=== PATIENT | male | born 1960 | race Caucasian/White ===

== ENCOUNTER 2022-12-18 10:17 | Inpatient (IN) | payer OTHER ==
[~2022-12-18] VITALS: Ht 185.4 cm; Wt 197.9 kg
[2022-12-18] MEDS ORDERED: cefTRIAXone 1GM/50ML D5W 50 ML IV ONE (11:15)
[2022-12-18] MEDS ORDERED: AZITHROMYCIN 500MG/ 250ML 250 ML IV ONE (11:15)
[2022-12-18] MEDS ORDERED: FUROSEMIDE 40 MG/4 ML VIAL IV ONE (11:15)
[2022-12-18 11:29] LABS: Basophils # (auto) 0.1 10 ^3/uL (0-0.2); Eosinophils # (auto) 0.1 10 ^3/uL (0-0.8)
[2022-12-18 11:32] LABS: Basophils % (auto) 0.8 % (0.0-2.0); Eosinophils % (auto) 1.7 % (0.0-7.0); Hematocrit 38.9 % (41.0-53.0); Hemoglobin 12.6 g/dL (13.5-17.5); Lymphocytes # (auto) 0.8 10 ^3/uL (0.4-5.4); Lymphocytes % (auto) 12.8 % (10.0-50.0); Mean Corpuscular Hgb Conc. 32.4 g/dL (32.0-36.0); Mean Corpuscular Volume 83.5 fL (80.0-100.0); Monocytes # (auto) 0.5 10 ^3/uL (0-1.3); Monocytes % (auto) 7.2 % (0.0-12.0); Neutrophils # (auto) 5.1 10 ^3/uL (1.6-8.6); Neutrophils % (auto) 77.5 % (37.0-80.0); Red Blood Cells 4.66 10^6/uL (4.5-5.90); Red Cell Distribution Width 16.5 % (11.8-14.3); White Blood Cell 6.6 10^3/uL (4.4-10.8)
[2022-12-18 11:40] LABS: Albumin 3.9 g/dL (3.4-5.0); Calcium 8.5 mg/dL (8.5-10.1); Potassium 3.9 mmol/L (3.5-5.1)
[2022-12-18 11:42] LABS: Bilirubin, Total 1.1 mg/dL (0.2-1.0); Total Protein 7.1 g/dL (6.4-8.2)
[2022-12-18] MEDS ORDERED: HEPARIN SODIUM (PORCINE) 5000 UNITS/ML 1ML VIAL IV ONE (14:30)
[2022-12-18 14:54] LABS: INR 1.14 (0.9-1.15); Partial Thromboplastin Time 30.6 sec (24.6-33.4)
[2022-12-18 15:14] LABS: Urine Bacteria NONE SEEN /hpf (None Seen); Urine Blood Negative /uL (Negative); Urine Specific Gravity 1.006 (1.001-1.035); Urine WBC <1 /hpf (0 - 3)
[2022-12-18] MEDS ORDERED: ACETAMINOPHEN 325 MG TAB PO PRN (16:45)
[2022-12-18] MEDS ORDERED: HYDROcodone-ACET 5/325MG TAB PO PRN (16:45)
[2022-12-18] MEDS ORDERED: DOCUSATE SOD 100 MG CAP PO PRN (16:45)
[2022-12-18] MEDS ORDERED: ONDANSETRON HCL 4 MG/2 ML VIAL IV PRN (16:45)
[2022-12-18] MEDS: HEPARIN DRIP/D5W 100UNITS/ML 250 ML IV SCH (19:58)
[2022-12-18] MEDS: IOHEXOL 350 MG/ML 100ML IJ ONE ×2 (20:06→22:43)
[2022-12-18] MEDS: FAMOTIDINE 20 MG TAB PO SCH (20:09)
[2022-12-18] MEDS: ceFAZolin 1GM/50ML 50 ML IV SCH (22:33)
[2022-12-19 03:09] LABS: INR 1.25 (0.9-1.15)
[2022-12-19 03:20] LABS: Partial Thromboplastin Time 72.9 sec (24.6-33.4)
[2022-12-19] MEDS: HEPARIN DRIP/D5W 100UNITS/ML 250 ML IV SCH ×3 (06:55→21:05)
[2022-12-19 09:22] LABS: INR 1.24 (0.9-1.15); Partial Thromboplastin Time 63.4 sec (24.6-33.4)
[2022-12-19] MEDS: ceFAZolin 1GM/50ML 50 ML IV SCH ×2 (09:51→22:08)
[2022-12-19] MEDS: FAMOTIDINE 20 MG TAB PO SCH (09:51)
[2022-12-19] MEDS ORDERED: FUROSEMIDE 40 MG/4 ML VIAL IV ONE ×2 (13:15→13:30)
[2022-12-19] MEDS ORDERED: DIGOXIN (250MCG/ML) 2 ML AMPULE IV ONE (13:30)
[2022-12-19] MEDS: AMIODARONE HCL 200 MG TAB PO SCH ×2 (14:29→22:08)
[2022-12-19] MEDS: METOPROLOL TARTRATE 25 MG TAB PO SCH ×2 (14:30→22:08)
[2022-12-19 15:35] LABS: Basophils # (auto) 0 10 ^3/uL (0-0.2); Basophils % (auto) 0.9 % (0.0-2.0); Eosinophils # (auto) 0.1 10 ^3/uL (0-0.8); Eosinophils % (auto) 1.4 % (0.0-7.0); Hematocrit 36.5 % (41.0-53.0); Lymphocytes % (auto) 17.6 % (10.0-50.0); Mean Corpuscular Hemoglobin 27.2 pg (28.0-32.0); Mean Corpuscular Hgb Conc. 32.8 g/dL (32.0-36.0); Mean Corpuscular Volume 82.9 fL (80.0-100.0); Monocytes # (auto) 0.4 10 ^3/uL (0-1.3); Monocytes % (auto) 8.2 % (0.0-12.0); Neutrophils # (auto) 3.9 10 ^3/uL (1.6-8.6); Neutrophils % (auto) 71.9 % (37.0-80.0); Nucleated Red Blood Cells % 0.1 %; Red Cell Distribution Width 16.6 % (11.8-14.3); White Blood Cell 5.4 10^3/uL (4.4-10.8)
[2022-12-19 15:52] LABS: INR 1.22 (0.9-1.15); Partial Thromboplastin Time 56.4 sec (24.6-33.4)
[2022-12-19 15:54] LABS: BUN/Creatinine Ratio 15.1; Magnesium 1.9 mg/dL (1.6-2.6); Phosphorus 3.2 mg/dL (2.5-4.90); Potassium 3.7 mmol/L (3.5-5.1)
[2022-12-19 22:00] VITALS: BP 129/80
[2022-12-20 00:09] VITALS: BP 129/80
[2022-12-20 00:26] LABS: INR 1.16 (0.9-1.15); Partial Thromboplastin Time 42.1 sec (24.6-33.4)
[2022-12-20] MEDS ORDERED: METF-370 PO (01:20)
[2022-12-20] MEDS ORDERED: POTA10TA51 PO (01:23)
[2022-12-20] MEDS ORDERED: APIX5TAB PO (01:23)
[2022-12-20] MEDS ORDERED: METO25TA5 PO (01:23)
[2022-12-20] MEDS ORDERED: LISI40TA11 PO (01:23)
[2022-12-20] MEDS ORDERED: ATOR40TA52 PO (01:24)
[2022-12-20] MEDS ORDERED: FURO20TA3 PO (01:24)
[2022-12-20] MEDS ORDERED: INSU1INJ19 SC (01:24)
[2022-12-20 05:00] VITALS: BP 124/64
[2022-12-20 07:09] LABS: INR 1.17 (0.9-1.15); Partial Thromboplastin Time 64.6 sec (24.6-33.4)
[2022-12-20 08:30] VITALS: BP 128/68
[2022-12-20 09:00] VITALS: BP 128/68
[2022-12-20] MEDS: FUROSEMIDE 20 MG/2 ML VIAL IV SCH ×2 (10:11→17:30)
[2022-12-20] MEDS: FAMOTIDINE 20 MG TAB PO SCH (10:11)
[2022-12-20] MEDS: METOPROLOL TARTRATE 25 MG TAB PO SCH ×2 (10:11→22:50)
[2022-12-20] MEDS: AMIODARONE HCL 200 MG TAB PO SCH ×2 (10:11→22:49)
[2022-12-20] MEDS: ceFAZolin 1GM/50ML 50 ML IV SCH ×2 (10:11→22:48)
[2022-12-20 13:00] VITALS: BP 107/56
[2022-12-20] MEDS: HEPARIN DRIP/D5W 100UNITS/ML 250 ML IV SCH ×2 (13:27→14:55)
[2022-12-20 13:31] LABS: INR 1.14 (0.9-1.15); Partial Thromboplastin Time 33.1 sec (24.6-33.4)
[2022-12-20] MEDS ORDERED: HEPARIN SODIUM (PORCINE) 5000 UNITS/ML 1ML VIAL SC ONE (14:35)
[2022-12-20] MEDS ORDERED: HEPARIN SODIUM (PORCINE) 5000 UNITS/ML 1ML VIAL IV ONE (14:48)
[2022-12-20 21:50] LABS: INR 1.15 (0.9-1.15)
[2022-12-20 21:59] LABS: Partial Thromboplastin Time 90.1 sec (24.6-33.4)
[2022-12-20 22:30] VITALS: BP 138/78
[2022-12-21] MEDS: HEPARIN DRIP/D5W 100UNITS/ML 250 ML IV SCH ×2 (01:46→12:55)
[2022-12-21 05:13] VITALS: BP 154/75
[2022-12-21] MEDS: FUROSEMIDE 20 MG/2 ML VIAL IV SCH ×2 (05:55→18:57)
[2022-12-21 07:08] LABS: Basophils # (auto) 0.1 10 ^3/uL (0-0.2); Basophils % (auto) 0.8 % (0.0-2.0); Eosinophils # (auto) 0.2 10 ^3/uL (0-0.8); Eosinophils % (auto) 3.2 % (0.0-7.0); Hemoglobin 11.3 g/dL (13.5-17.5); Lymphocytes # (auto) 1.1 10 ^3/uL (0.4-5.4); Lymphocytes % (auto) 18.2 % (10.0-50.0); Mean Corpuscular Hemoglobin 26.7 pg (28.0-32.0); Mean Corpuscular Hgb Conc. 32.4 g/dL (32.0-36.0); Mean Corpuscular Volume 82.5 fL (80.0-100.0); Monocytes # (auto) 0.6 10 ^3/uL (0-1.3); Monocytes % (auto) 10.6 % (0.0-12.0); Neutrophils # (auto) 4.1 10 ^3/uL (1.6-8.6); Neutrophils % (auto) 67.2 % (37.0-80.0); Red Blood Cells 4.24 10^6/uL (4.5-5.90); Red Cell Distribution Width 16.9 % (11.8-14.3); White Blood Cell 6.1 10^3/uL (4.4-10.8)
[2022-12-21 07:31] LABS: Potassium 3.6 mmol/L (3.5-5.1)
[2022-12-21 07:33] LABS: INR 1.13 (0.9-1.15); Partial Thromboplastin Time 57.5 sec (24.6-33.4)
[2022-12-21 07:38] LABS: BUN/Creatinine Ratio 11.5; Calcium 8.7 mg/dL (8.5-10.1)
[2022-12-21 08:00] VITALS: BP 127/59
[2022-12-21 09:00] VITALS: BP 127/59
[2022-12-21] MEDS: FAMOTIDINE 20 MG TAB PO SCH (10:42)
[2022-12-21] MEDS: AMIODARONE HCL 200 MG TAB PO SCH ×2 (10:42→22:45)
[2022-12-21] MEDS: ceFAZolin 1GM/50ML 50 ML IV SCH ×2 (10:43→22:44)
[2022-12-21] MEDS: METOPROLOL TARTRATE 25 MG TAB PO SCH ×2 (10:43→22:45)
[2022-12-21 12:30] VITALS: BP 133/86
[2022-12-21 12:52] LABS: INR 1.1 (0.9-1.15); Partial Thromboplastin Time 61.9 sec (24.6-33.4)
[2022-12-21 17:00] VITALS: BP 126/75
[2022-12-21] MEDS ORDERED: WARFARIN SODIUM 10 MG TAB PO ONE (17:30)
[2022-12-21 22:00] VITALS: BP 139/91
[2022-12-21] MEDS: ENOXAPARIN SOD 150 MG/1 ML SYRINGE SC SCH (22:44)
[2022-12-22 05:00] VITALS: BP 130/78
[2022-12-22] MEDS: FUROSEMIDE 20 MG/2 ML VIAL IV SCH ×2 (06:13→16:54)
[2022-12-22 07:20] LABS: INR 1.09 (0.9-1.15); Partial Thromboplastin Time 29.6 sec (24.6-33.4)
[2022-12-22 07:27] LABS: Calcium 8.8 mg/dL (8.5-10.1); Potassium 3.7 mmol/L (3.5-5.1)
[2022-12-22 07:29] LABS: BUN/Creatinine Ratio 12.2
[2022-12-22] MEDS: AMIODARONE HCL 200 MG TAB PO SCH ×2 (08:36→22:22)
[2022-12-22] MEDS: FAMOTIDINE 20 MG TAB PO SCH (08:36)
[2022-12-22] MEDS: ENOXAPARIN SOD 150 MG/1 ML SYRINGE SC SCH ×2 (08:36→22:23)
[2022-12-22] MEDS: ceFAZolin 1GM/50ML 50 ML IV SCH ×2 (08:36→22:25)
[2022-12-22] MEDS: METOPROLOL TARTRATE 25 MG TAB PO SCH ×2 (08:37→22:23)
[2022-12-22 09:00] VITALS: BP 114/70
[2022-12-22 13:00] VITALS: BP 121/54
[2022-12-22 16:49] VITALS: BP 142/72
[2022-12-22] MEDS ORDERED: WARFARIN SODIUM 10 MG TAB PO ONE (17:00)
[2022-12-22 22:00] VITALS: BP 135/80
[2022-12-23] MEDS: FUROSEMIDE 20 MG/2 ML VIAL IV SCH ×2 (05:21→17:56)
[2022-12-23 05:38] VITALS: BP 122/54
[2022-12-23 07:07] LABS: INR 1.24 (0.9-1.15); Partial Thromboplastin Time 30.8 sec (24.6-33.4)
[2022-12-23 09:00] VITALS: BP 127/75
[2022-12-23] MEDS: ceFAZolin 1GM/50ML 50 ML IV SCH ×2 (09:16→21:55)
[2022-12-23] MEDS: FAMOTIDINE 20 MG TAB PO SCH (09:16)
[2022-12-23] MEDS: ENOXAPARIN SOD 150 MG/1 ML SYRINGE SC SCH ×2 (09:16→21:55)
[2022-12-23] MEDS: AMIODARONE HCL 200 MG TAB PO SCH ×2 (09:17→21:55)
[2022-12-23] MEDS: METOPROLOL TARTRATE 25 MG TAB PO SCH ×2 (09:18→21:55)
[2022-12-23 13:00] VITALS: BP 114/71
[2022-12-23 17:00] VITALS: BP 136/85
[2022-12-23] MEDS ORDERED: WARFARIN SODIUM 2.5 MG TAB PO ONE (17:00)
[2022-12-23] MEDS: Juven Fruit Punch Powder PACKET 28.8gm PO SCH (17:57)
[2022-12-23 22:00] VITALS: BP 142/74
[2022-12-24 05:00] VITALS: BP 119/68
[2022-12-24] MEDS: FUROSEMIDE 20 MG/2 ML VIAL IV SCH ×2 (05:58→18:00)
[2022-12-24 06:30] LABS: Eosinophils # (auto) 0.2 10 ^3/uL (0-0.8); Lymphocytes # (auto) 0.9 10 ^3/uL (0.4-5.4); Mean Corpuscular Volume 82.8 fL (80.0-100.0); Monocytes # (auto) 0.6 10 ^3/uL (0-1.3); Neutrophils % (auto) 68.8 % (37.0-80.0)
[2022-12-24 06:33] LABS: Basophils # (auto) 0 10 ^3/uL (0-0.2); Basophils % (auto) 0.7 % (0.0-2.0); Eosinophils % (auto) 3.8 % (0.0-7.0); Hematocrit 33.5 % (41.0-53.0); Hemoglobin 10.7 g/dL (13.5-17.5); Lymphocytes % (auto) 16.2 % (10.0-50.0); Mean Corpuscular Hemoglobin 26.6 pg (28.0-32.0); Mean Corpuscular Hgb Conc. 32.1 g/dL (32.0-36.0); Monocytes % (auto) 10.5 % (0.0-12.0); Neutrophils # (auto) 3.9 10 ^3/uL (1.6-8.6); Nucleated Red Blood Cells % 0.2 %; Red Blood Cells 4.04 10^6/uL (4.5-5.90); Red Cell Distribution Width 16.3 % (11.8-14.3); White Blood Cell 5.7 10^3/uL (4.4-10.8)
[2022-12-24 06:40] LABS: INR 1.63 (0.9-1.15); Partial Thromboplastin Time 37.1 sec (24.6-33.4)
[2022-12-24 07:17] LABS: Potassium 3.8 mmol/L (3.5-5.1)
[2022-12-24 07:28] LABS: BUN/Creatinine Ratio 16.5; Calcium 8.8 mg/dL (8.5-10.1)
[2022-12-24 08:00] VITALS: BP 126/73
[2022-12-24] MEDS: Juven Fruit Punch Powder PACKET 28.8gm PO SCH ×2 (08:00→18:00)
[2022-12-24] MEDS: ceFAZolin 1GM/50ML 50 ML IV SCH ×2 (09:41→21:58)
[2022-12-24] MEDS: FAMOTIDINE 20 MG TAB PO SCH (09:41)
[2022-12-24] MEDS: METOPROLOL TARTRATE 25 MG TAB PO SCH ×2 (09:42→21:51)
[2022-12-24] MEDS: AMIODARONE HCL 200 MG TAB PO SCH ×2 (09:43→21:52)
[2022-12-24] MEDS: ENOXAPARIN SOD 150 MG/1 ML SYRINGE SC SCH ×2 (09:44→21:58)
[2022-12-24 12:00] VITALS: BP 140/83
[2022-12-24 16:00] VITALS: BP 141/90
[2022-12-24] MEDS ORDERED: WARFARIN SODIUM 2.5 MG TAB PO ONE (17:00)
[2022-12-24 21:52] VITALS: BP 142/69
[2022-12-25 04:49] VITALS: BP 127/67
[2022-12-25 05:25] LABS: INR 1.72 (0.9-1.15); Partial Thromboplastin Time 41.3 sec (24.6-33.4)
[2022-12-25] MEDS: FUROSEMIDE 20 MG/2 ML VIAL IV SCH ×2 (05:56→17:36)
[2022-12-25] MEDS: Juven Fruit Punch Powder PACKET 28.8gm PO SCH ×2 (07:43→17:34)
[2022-12-25 08:30] VITALS: BP 125/80
[2022-12-25] MEDS: ceFAZolin 1GM/50ML 50 ML IV SCH ×2 (09:49→22:13)
[2022-12-25] MEDS: FAMOTIDINE 20 MG TAB PO SCH (09:50)
[2022-12-25] MEDS: METOPROLOL TARTRATE 25 MG TAB PO SCH ×2 (09:50→22:14)
[2022-12-25] MEDS: AMIODARONE HCL 200 MG TAB PO SCH ×2 (09:51→22:13)
[2022-12-25] MEDS: ENOXAPARIN SOD 150 MG/1 ML SYRINGE SC SCH ×2 (09:51→22:14)
[2022-12-25 13:00] VITALS: BP 127/71
[2022-12-25 16:58] VITALS: BP 140/81
[2022-12-25] MEDS ORDERED: WARFARIN SODIUM 10 MG TAB PO ONE (17:00)
[2022-12-25 22:00] VITALS: BP 148/80
[2022-12-26 05:00] VITALS: BP 123/73
[2022-12-26] MEDS: FUROSEMIDE 20 MG/2 ML VIAL IV SCH ×2 (06:02→18:25)
[2022-12-26 06:55] LABS: Basophils # (auto) 0.1 10 ^3/uL (0-0.2); Basophils % (auto) 1.1 % (0.0-2.0); Eosinophils # (auto) 0.2 10 ^3/uL (0-0.8); Eosinophils % (auto) 3.2 % (0.0-7.0); Hemoglobin 10.5 g/dL (13.5-17.5); Lymphocytes # (auto) 0.9 10 ^3/uL (0.4-5.4); Lymphocytes % (auto) 16.5 % (10.0-50.0); Mean Corpuscular Hemoglobin 27.5 pg (28.0-32.0); Mean Corpuscular Hgb Conc. 33.7 g/dL (32.0-36.0); Mean Corpuscular Volume 81.5 fL (80.0-100.0); Monocytes # (auto) 0.6 10 ^3/uL (0-1.3); Monocytes % (auto) 11.4 % (0.0-12.0); Neutrophils # (auto) 3.6 10 ^3/uL (1.6-8.6); Neutrophils % (auto) 67.8 % (37.0-80.0); Nucleated Red Blood Cells % 0.1 %; Red Blood Cells 3.81 10^6/uL (4.5-5.90); Red Cell Distribution Width 16.2 % (11.8-14.3); White Blood Cell 5.3 10^3/uL (4.4-10.8)
[2022-12-26 07:07] LABS: BUN/Creatinine Ratio 15.8; Calcium 8.5 mg/dL (8.5-10.1); Potassium 3.7 mmol/L (3.5-5.1)
[2022-12-26 07:20] LABS: INR 2.23 (0.9-1.15)
[2022-12-26 08:10] VITALS: BP 154/88
[2022-12-26] MEDS: Juven Fruit Punch Powder PACKET 28.8gm PO SCH ×2 (08:10→18:25)
[2022-12-26 08:25] VITALS: BP 154/88
[2022-12-26] MEDS: AMIODARONE HCL 200 MG TAB PO SCH (10:08)
[2022-12-26] MEDS: FAMOTIDINE 20 MG TAB PO SCH (10:08)
[2022-12-26] MEDS: ceFAZolin 1GM/50ML 50 ML IV SCH (10:08)
[2022-12-26] MEDS: ENOXAPARIN SOD 150 MG/1 ML SYRINGE SC SCH (10:09)
[2022-12-26] MEDS: METOPROLOL TARTRATE 25 MG TAB PO SCH (10:09)
[2022-12-26] MEDS ORDERED: WARF7.5T20 PO (11:23)
[2022-12-26 11:45] VITALS: BP 133/76
[2022-12-26] MEDS ORDERED: WARFARIN SODIUM 2.5 MG TAB PO ONE (15:00)
[2022-12-26 15:34] VITALS: BP 133/76
[2022-12-26 16:50] VITALS: BP 128/59
== END 2022-12-26 20:10 | disposition home or self-care (01) | DRG 291 ==
LOC: ER 10:17 → EDBD 10:17 → TELE 16:43 → TELE-WESTW 12-19 22:30
PROVIDERS: ADMIT Internal Medicine; ATTEND Internal Medicine
DX: I11.0 Hypertensive heart disease with heart failure (principal); I50.43 Acute on chronic combined systolic (congestive) and diastolic (congestive) heart failure; J96.00 Acute respiratory failure, unspecified whether with hypoxia or hypercapnia; L03.116 Cellulitis of left lower limb; I82.432 Acute embolism and thrombosis of left popliteal vein; I48.20 Chronic atrial fibrillation, unspecified; Z68.43 Body mass index [BMI] 50.0-59.9, adult; Z20.822 Contact with and (suspected) exposure to COVID-19; E11.9 Type 2 diabetes mellitus without complications; E66.01 Morbid (severe) obesity due to excess calories; E78.5 Hyperlipidemia, unspecified; Z82.49 Family history of ischemic heart disease and other diseases of the circulatory system; Z83.3 Family history of diabetes mellitus; Z79.01 Long term (current) use of anticoagulants
CPT/HCPCS: 36415; 36600; 71046; 80048; 80053; 81001; 82805; 82962; 83036; 83605; 83735; 83880; 84100; 84439; 84443; 84484; 85025; 85379; 85610; 85730; 87040; 87426; 93005; 93306; 93970; 96374; 96375; 97116; 97163; 97530; G0378; J0690; J0696